=== PATIENT | female | born 1955 | race Caucasian/White ===

== ENCOUNTER 2021-12-17 06:42 | Observation (INO) | payer OTHER ==
[~2021-12-17] VITALS: Ht 165.1 cm; Wt 92.4 kg
[2021-12-17 08:11] VITALS: BP 128/64
[2021-12-17 08:13] LABS: HEMATOCRIT 40.3 % (37.0-47.0); HEMOGLOBIN 13.5 gm/dL (12.0-15.0); MCH 29.5 pg (26.0-34.0); MCHC 33.6 g/dL (28.0-37.0); MCV 87.9 fL (80.0-100.0); RBC 4.59 mil/uL (4.20-5.00); WBC 11.1 thou/uL (4.0-11.0)
--- NOTE | 2021-12-17 08:21 | EKG ---
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1955 Requested By: Mervin Flores Order Number: [id number] MD: Cosme Schuster Measurements Intervals [place] Rate: 76 P: 67 UT: 160 QRS: -6 QRSD: 102 T: 64 QT: 427 QTc: 481 Interpretive Statements Sinus rhythm Abnormal R-wave progression, late transition No previous ECG available for comparison Electronically Signed On 12-17-2021 8:20:51 MILITARY SCIENCE TEACHER by Cosme Schuster [email or web address] <ELECTRONICALLY SIGNED> By: Cosme Schuster MD, [facility] 12/17/21 0820 0738 0738 Cosme Schuster MD, FACC /EPI
[2021-12-17 08:30] LABS: CALCIUM 9.4 mg/dL (8.5-10.1); CREATININE 0.8 mg/dL (0.6-1.0); POTASSIUM 3.7 mmol/L (3.5-5.1)
[2021-12-17] MEDS ORDERED: PROAIR HFA8.5 GM INH (08:49)
[2021-12-17] MEDS ORDERED: ASA81BEC PO (08:50)
[2021-12-17] MEDS ORDERED: BASAGLAR K100 UNIT/1 INJECTION (08:51)
[2021-12-17] MEDS ORDERED: CELEBREX 200 M200 MG PO (08:52)
[2021-12-17] MEDS ORDERED: FLEXERIL PO (08:54)
[2021-12-17] MEDS ORDERED: CLONIDINE HCL0.1 M1 PO (08:54)
[2021-12-17] MEDS ORDERED: DIFLUCAN50 MG PO (08:55)
[2021-12-17] MEDS ORDERED: FLONASE 0.05%50 MCG NARES (08:57)
[2021-12-17] MEDS ORDERED: AMITRIPTYLINE H75 M1 PO (08:57)
[2021-12-17] MEDS ORDERED: LASIX 40 MG TAB40 MG PO (08:59)
[2021-12-17] MEDS ORDERED: HYDROCODON-ACE1 EAC7 PO (08:59)
[2021-12-17] MEDS ORDERED: HYDROXYZINE HCL25 M2 PO (09:00)
[2021-12-17] MEDS ORDERED: IBU600 MG PO (09:01)
[2021-12-17] MEDS ORDERED: IPRATROPIU0.2 MG/1 M INH (09:04)
[2021-12-17] MEDS ORDERED: LAMOTRIGINE250 MG PO (09:05)
[2021-12-17] MEDS ORDERED: LEVO-T100 MCG PO (09:05)
[2021-12-17] MEDS ORDERED: LISINOPRIL20 MG PO (09:06)
[2021-12-17] MEDS ORDERED: MECLIZINE HCL25 M1 PO (09:07)
[2021-12-17] MEDS ORDERED: LORAZEPAM 1 MG T1 MG PO (09:07)
[2021-12-17] MEDS ORDERED: TOPROL XL50 MG PO (09:07)
[2021-12-17] MEDS ORDERED: SINGULAIR 10 MG10 MG PO (09:08)
[2021-12-17] MEDS ORDERED: NOVOLOG MI100 UNIT/M INJECTION (09:09)
[2021-12-17] MEDS ORDERED: NYSTATIN1 EA10 TOP (09:10)
[2021-12-17] MEDS ORDERED: ONDANSETRON ODT4 MG PO (09:10)
[2021-12-17] MEDS ORDERED: RAYOS5 MG PO (09:11)
[2021-12-17] MEDS ORDERED: LYRICA200 MG PO (09:12)
[2021-12-17] MEDS ORDERED: ROPINIROLE HCL0.5 MG PO (09:12)
[2021-12-17] MEDS ORDERED: SENNA PLUS TAB1 EACH PO (09:16)
[2021-12-17] MEDS ORDERED: SYMBICORT160 MCG/4. INH (09:17)
[2021-12-17] MEDS ORDERED: THEOPHYLLI IV (09:17)
[2021-12-17] MEDS ORDERED: ONZETRA XSAIL11 MG NARES (09:17)
[2021-12-17] MEDS ORDERED: VITAMIN D21250 MCG PO ×2 (09:18→09:20)
[2021-12-17] MEDS ORDERED: DESYREL150 MG PO (09:18)
[2021-12-17] MEDS ORDERED: GEODON80 MG PO (09:19)
--- NOTE | 2021-12-17 18:11 | CATHLAB ---
[facility] [place] [address] INVASIVE PROCEDURE REPORT Name: BASILCLAUDIA Bolton Room #: 207-P ADM [facility] MBakari#: [id number] Admission: 12/17/21 Attend Phys: Mervin Flores MD, Discharge: Date of : 53 Report #: [id number] THIS REPORT FOR: cc: Mervin Flores MD [facility] Mervin Flores MD [facility] Mervin Flores MD [facility] ~ APPROVED REPORT Study performed: 12/17/2021 11:35:38 Patient Details Patient Status: Out-Patient Room #: The patient is a 66 year-old female Event Personnel Mervin Flores Mechanical Project Engineer, Jose Duke RN RN, Claudia Rivera RTR, Alan Wetzel Amy RTR Monitor, Valentina East RTR Monitor Procedures Performed Art Access - R femoral artery* Right and Left Heart Cath w/Lt. Venogram [id number] RLCWLV LILLIE Place w/wo Plasty Single LAD 951338 32451 Initial Mod Sed Same Phys/QHP Gr5y 925950 94315 Mod Sed Same Phys/QHP Ea 176815 Indication Chest pain Procedure Narrative The patient was brought electively to the Cardiac Catheterization Laboratory and was prepped and draped in a sterile manner. The Right Groin^ was infiltrated with 1% Lidocaine subcutaneous anesthesia. A Right Heart Catheterization was performed with a 7 Fr. [place]-Noemi catheter and pressure were recorded. Cardiac outputs were obtained by the Thermal Dilution method. A PINNACLE 6FR Sheath #[id number] sheath was inserted into the RFA^. Coronary angiography was performed using coronary diagnostic catheters. The right coronary system was accessed and visualized with a JR4 catheter. The left coronary system was accessed and visualized with a JL4 catheter. The left ventricle was accessed and visualized with a PIGTAIL catheter. Left ventricular/Aortic Valve gradient assessed via catheter pullback. Left ventriculogram was performed in 30 degree projection. An aortogram of the abdominal aorta was performed. Closure device was deployed with a Fr MYNXGRIP 6/7F #[id number]. The patient tolerated the [address] [address] INVASIVE PROCEDURE REPORT Name: CLAUDIA CARVER Room #: 207-P [facility] [place] .R.#: [id number] Admission: 12/17/21 Attend Phys: Mervin Flores, Discharge: Date of : 53 Report #: [id number] procedure well and there were no complications associated with the procedure. There was no hematoma. Intraoperative Conscious Sedation Sedation start time: 12:18 Case end Time: 13:15 Fentanyl 100 mcg Versed 2 mg Fluoro Time: 4.52 minutes Dose: DAP 6332.80 cGycm2 784 mGy Contrast Type and Amount: Omnipaque 130 ml Hemodynamics The right atrial mean pressure is 9 mmHg. The right ventricular pressure is 43/-4 mmHg. The pulmonary artery pressure is 35/12 mmHg with a mean of 21 mmHg. The mean pulmonary capillary wedge pressure is 14 mmHg. The aortic pressure is 127/67 mmHg with a mean of 92 mmHg. The left ventricular pressure is 140/7 mmHg with a mean of mmHg. The left ventricular end diastolic pressure is 21 mmHg. Pullback from the left ventricle to the aorta revealed no gradient across the aortic valve. The cardiac output using thermo method is 7.35 L/min. The cardiac index using thermo method is 3.76 L/min/m2. PCI Technique Lesion Percutaneous coronary intervention was performed on the proximal left anterior descending artery segment. A LAUNCHER 6FR EBU 3.5 #[id number] Guide Catheter was used to engage the LAD ostium. A Luge Wire .014 x 182CM #[id number] Interventional Guidewire was used to cross the lesion. BALLOON DILATION A Balloon catheter RESOLUTE BRIAN OTW 2.75 X 18 #[id number] was inserted and inflated up to 16.00atm for 21seconds. Additional Inflation: 18.00atm for 22seconds. Conclusion #1 Successful PTCA stent of a proximal LAD lesion 80% focal then a longer lesion leading up to with a 2.75 x 18 resolute stent postdilated 3.0 mm KAPIL grade III flow in this LAD which extends to the apex. #2 large long left main free of disease giving rise to LAD and circumflex. #3 circumflex OM is nondominant but moderate distribution with only mild irregularity. #4 dominant right coronary with only mild irregularity PDA ALISA well [facility] [address] [address] INVASIVE PROCEDURE REPORT Name: CLAUDIA CARVER Room #: 207-P [facility] [place] M.R.#: [id number] Admission: 12/17/21 Attend Phys: Mervin Flores, Discharge: Date of : 53 Report #: [id number] preserved. #5 normal left jugular size with subtle anterior apical wall leg EF near normal 55% #6 abdominal aortogram revealing no evidence of aneurysm mild aortic calcification. No occlusive disease. #7 successful right heart catheterization with cardiac output by thermodilution. See above hemodynamics. Recommendations and plan: Continue aggressive risk factor modification. Dual antiplatelet therapy has been initiated. Resolution of EKG changes and chest pain. Patient transferred to CCU to follow post coronary stent protocol. <ELECTRONICALLY SIGNED> By: Mervin Flores MD, FACC 12/17/211810 10 10 Mervin Flores MD, FACC /INF
[2021-12-17 19:41] VITALS: BP 150/69
[2021-12-18] VITALS (7 sets, daily range): BP systolic 126–138; BP diastolic 55–66
--- NOTE | 2021-12-18 03:44 | NUR ---
Assumed pt care at 190. Pt is alert and oriented. Pt is laying in bed, right groin site is clean dry and intact. No sign of distress noted. Assessment completed and documented. Fall precaution in place. Scheduled meds administered to pt. No acute needs at this time. Continue to monitor. No further needs at this time.
[2021-12-18 05:13] LABS: HEMATOCRIT 39.5 % (37.0-47.0); HEMOGLOBIN 13.1 gm/dL (12.0-15.0); MCH 29.3 pg (26.0-34.0); MCHC 33.3 g/dL (28.0-37.0); RBC 4.49 mil/uL (4.20-5.00); RDW 13.9 % (10.5-14.5); WBC 7.5 thou/uL (4.0-11.0)
[2021-12-18 06:10] LABS: ALBUMIN 3.2 g/dL (3.4-5.0); CREATININE 0.6 mg/dL (0.6-1.0); POTASSIUM 3.3 mmol/L (3.5-5.1); TOTAL BILIRUBIN 0.4 mg/dL (0.2-1.0); TOTAL PROTEIN 6.2 g/dL (6.4-8.2)
[2021-12-18] MEDS ORDERED: EFFIENT10 MG PO (07:43)
[2021-12-18] MEDS ORDERED: CRESTOR20 MG PO (07:57)
--- NOTE | 2021-12-18 11:57 | EKG ---
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 : 1955 Requested By: Karime Sandoval Order Number: [id number] MD: Vernon Hicks Measurements Intervals [place] Rate: 83 P: 69 MA: 155 QRS: -54 QRSD: 104 T: 65 QT: 417 QTc: 490 Interpretive Statements Sinus rhythm LAD, consider left anterior fascicular block Borderline prolonged QT interval Compared to ECG 12/17/2021 07:38:26 No significant changes Electronically Signed On 12-18-2021 11:57:31 BUDDHIST MONK by Vernon Hicks [email or web address] <ELECTRONICALLY SIGNED> By: Vernon Hicks MD, [facility] 12/18/21 1157 0758 0758 Vernon Hicks MD, FAC /EPI
--- NOTE | 2021-12-18 17:22 | NUR ---
SETUP TRASNPORTATION FOR PATIENT. [facility] AT 12:30 12/18/21. AT THAT TIME THE COMPUTER OPERATOR STATED THERE WOULD BE TRANSPORT TO TRAINING PROGRAM DEVELOPER THE PATIENT WITHIN THREE HOURS. AT 15:30 I CALLED BACK TO [facility]. AT THAT TIME THEY STATED THERE WOULD BE TRANSPORT WITHIN THE NEXT TWO HOURS. SPOKE WITH INSTRUMENT SETTER TIARA WHO SPOKE WITH CASE MANAGEMENT. I WAS GIVING THE NUMBER TO [facility] TO TRANSPORT THE PATIENT HOME. [facility] STATED THEY COULD NOT TRANSPORT UNTIL 2200 - 2230 THIS EVENING. INFORMED DIRECTOR OF CORPORATE MARKETING AND INSTRUMENT SETTER.
--- NOTE | 2021-12-18 23:53 | NUR ---
DISCHARGED PER WHEELCHAIR TO CAR, FOR HOME.
== END 2021-12-18 23:54 | disposition home or self-care (01) ==
LOC: CATH 06:42 → 2N 18:06
PROVIDERS: Nurse Practitioner Adult Health; ADMIT Internal Medicine Cardiovascular Disease; ATTEND Internal Medicine Cardiovascular Disease
DX: I25.10 Atherosclerotic heart disease of native coronary artery without angina pectoris (principal); I11.0 Hypertensive heart disease with heart failure; I50.30 Unspecified diastolic (congestive) heart failure; Z20.822 Contact with and (suspected) exposure to COVID-19; J44.9 Chronic obstructive pulmonary disease, unspecified; E78.5 Hyperlipidemia, unspecified; E11.9 Type 2 diabetes mellitus without complications; Z88.1 Allergy status to other antibiotic agents; Z91.040 Latex allergy status; Z88.8 Allergy status to other drugs, medicaments and biological substances